=== PATIENT | female | born 1980 | race Caucasian/White ===

== ENCOUNTER 2022-04-23 12:49 | Emergency (ER) | payer OTHER, SELFPAY ==
[2022-04-23 13:04] VITALS: BP 128/83; PULSE 89; RESP 14; TEMP 36.7; O2SAT 100
[2022-04-23 13:18] VITALS: BP 128/83; PULSE 89; RESP 14; TEMP 36.7; O2SAT 100
--- NOTE | 2022-04-23 13:29 | ED.URI ---
HPI - URI/Sore Throat General Chief Complaint: Upper Respiratory Infection Stated Complaint: cough and congestion Time Seen by Provider: 04/23/22 13:29 Source: patient Mode of arrival: ambulatory Limitations: no limitations History of Present Illness HPI Narrative: 41-year-old female presents with complaint of nasal congestion, cough, fatigue for 1 week. Not taking any [id number] medications to treat her symptoms. States that she prefers not to over medicate when she does not need the medications. Afebrile. States that the cough does not seem to be getting better. Woke up this morning and chest congestion is worse. States she is coughing up green sputum. All systems reviewed and negative except as noted above. Related Data Allergies Allergy/AdvReac Type Severity Reaction Status Date / Time Penicillins Allergy Mild Hives / Verified 04/23/22 13:23 Red Face Review of Systems Review of Systems: CONSTITUTIONAL: Denies fever, chills, or sweats. Reports fatigue. EYES: Denies visual changes, redness, or discharge. ENT: Reports rhinorrhea, congestion, sore throat. Denies otalgia. CARDIOVASCULAR: Denies chest pain, palpitations, or edema. RESPIRATORY: Reports cough. Denies dyspnea. GASTROINTESTINAL: Denies abdominal pain, nausea, vomiting, or diarrhea. GENITOURINARY: Denies dysuria or hematuria. SKIN: Denies rash or itching. MUSCULOSKELETAL: Denies back pain, joint pain, or myalgia. NEUROLOGIC: Denies headache, numbness, or weakness. PSYCHIATRIC: Denies anxiety or depression. All other systems reviewed are negative, except as documented in HPI. PMFSH Comments At time of signature, agree with nursing past medical, surgical, social and family history. There is no relevant family history pertinent to the presenting complaint. Exam Narrative: GENERAL: This is a well-nourished, well-developed patient, in no apparent distress. HEAD: normocephalic, atraumatic. EYES: PERRL. Sclera clear/white. Vision is grossly intact. EARS: External ears normal, auditory canals clear and without drainage, TMs normal without perforation. Hearing grossly intact. NOSE: External nose normal with clear nasal drainage. THROAT: Mucous membranes moist, posterior pharynx clear. NECK: Neck supple, non-tender without lymphadenopathy, masses or thyromegaly. CARDIOVASCULAR: Regular rate and rhythm without murmurs, gallops, or rubs. RESPIRATORY: Decreased lung sounds to lower lung quarles. No wheezes, rales, or rhonchi. SKIN: warm, Dry, intact with no suspicious lesions or rash, good texture and turgor. NEURO: awake, alert, and oriented to person, place and time. There were no obvious focal neurologic abnormalities. EXTREMITIES: No joint tenderness, effusion, or edema noted. Course Course Level of Care: Express Care Visit Vital Signs Vital signs: Vital Signs Temperature 36.7 C 04/23/22 13:04 Pulse Rate 89 04/23/22 13:04 Respiratory Rate 14 04/23/22 13:04 Blood Pressure 128/83 04/23/22 13:04 Pulse Oximetry 100 04/23/22 13:04 Oxygen Delivery Room Air 04/23/22 13:04 Temperature 36.7 C 04/23/22 13:18 Pulse Rate 89 04/23/22 13:18 Respiratory Rate 14 04/23/22 13:18 Blood Pressure 128/83 04/23/22 13:18 Pulse Oximetry 100 04/23/22 13:18 Oxygen Delivery Room Air 04/23/22 13:18 Reviewed MDM - URI/Sore Throat MDM Narrative Medical decision making narrative: Patient is aware of diagnosis, understands and agrees to treatment plan. Anticipatory guidance given. Patient agrees to follow-up as directed and is aware of reasons to seek care at the emergency department. Portions of this record may have been created with voice recognition software Differential Diagnosis Differential diagnosis: Likely upper respiratory infection, sinusitis, viral infection, bronchitis and influenza Discharge Plan Discharge Clinical Impression: Upper respiratory infection Patient Disposition: Home, Self-Care Condition:
== END 2022-04-23 13:43 | disposition home or self-care (01) ==
PROVIDERS: Emergency Provider Nurse Practitioner Family; PCP Internal Medicine
DX: J06.9 Acute upper respiratory infection, unspecified (principal)
CPT/HCPCS: 99213; G0463

== ENCOUNTER 2022-12-04 08:00 | Emergency (ER) | payer OTHER, SELFPAY ==
[2022-12-04 08:00] VITALS: BP 138/90; PULSE 100; RESP 16; TEMP 37; O2SAT 97
[2022-12-04 08:25] VITALS: BP 138/90; PULSE 100; RESP 16; TEMP 37; O2SAT 97
--- NOTE | 2022-12-04 08:42 | ED.EYEPROB ---
HPI - Eye Problem General Chief complaint: Eye Problems Stated complaint: right eyelid swelling Source: patient and family Mode of arrival: ambulatory Limitations: no limitations History of Present Illness HPI Narrative: 42-year-old white female was outside yesterday came inside and notice by her daughter that her right eyelid was a little swollen she felt a little heavy in the eye lid. Denies any problems seeing yesterday or today. Other than that her eyelids swollen shot. She woke up with some discharge in her eye. To the eye just feels heavy not really pain. Does not remember having anything blowing her face or her eye yesterday are had any stings or insect or any event that might have caused this. Denies any problems walking talking seeing or hearing cough shortness of breath sore throat runny nose problems voiding or stooling eating or drinking nausea vomiting dizziness or lightheadedness rash or itching. Denies any other swelling. Related Data Allergies Allergy/AdvReac Type Severity Reaction Status Date / Time Penicillins Allergy Mild Hives / Verified 04/23/22 13:23 Red Face Review of Systems Review of Systems: All systems reviewed & are unremarkable except as noted in HPI and below Exam Const: General: healthy appearing Nutritional Appearance: well nourished Orientation/consciousness: patient oriented x3 Limitations: no limitations HENMT: Ears: external ears normal Face/Nose/Sinus: Normal external nose present Mouth: Yes Normal oral and palatal mucosa present Teeth and gingiva: dentition normal Throat: posterior oropharynx normal Eyes: Conjunctivae: conjunctival abnormality ( CONJUNCTIVA INJECTED ON THE RIGHT LEFT EYE WAS NORMAL.) Pupils: Equal, round and reactive pupils present EOM: EOMs intact bilaterally Direct Ophthalmoscopy: no photophobia Other: Right eyelid swollen to the point were her eyes swollen shut. RIGHT EYELID SWELLING DECREASED DURING THE EXAM. Eyelid was everted there was no foreign body seen fluorescein exam showed no uptake of fluorescein of the cornea. Pupils are equal round react to light extraocular movements are intact. Neck: Neck: normal visual inspection, no lymphadenopathy and no meningeal signs Course Vital Signs Vital signs: Vital Signs Temperature 37.0 C 12/04/22 08:00 Pulse Rate 100 12/04/22 08:00 Respiratory Rate 16 12/04/22 08:00 Blood Pressure 138/90 12/04/22 08:00 Pulse Oximetry 97 12/04/22 08:00 Oxygen Delivery Room Air 12/04/22 08:00 Temperature 37.0 C 12/04/22 08:25 Pulse Rate 100 12/04/22 08:25 Respiratory Rate 16 12/04/22 08:25 Blood Pressure 138/90 12/04/22 08:25 Pulse Oximetry 97 12/04/22 08:25 Oxygen Delivery Room Air 12/04/22 08:25 MDM - Eye Problem MDM Narrative Medical decision making narrative: Independent Historian: Differential Dx includes but not limited to: CONJUNCTIVITIS PERIORBITAL CELLULITIS CORNEAL ABRASION Medications were Reviewed: YES Independently Interpreted by me: External Source Review: Shared decision Making: Evaluation was discussed with patient her spouse. Re-treat her with Polytrim and cephalexin and she would follow up with her primary care provider this week. Social Situation Impacting Patients Care: Discussed with Dr. CHUN DIAGNOSIS: CONJUNCTIVITIS DISPOSITION: DISCHARGE HOME CONDITION AT DISCHARGE: STABLE Discharge Plan Discharge Clinical Impression: Bacterial conjunctivitis Patient Disposition: Home, Self-Care Condition: Stable Instructions: Antibiotic Form Additional Instructions: ice packs for 20 minutes as needed to decrease swelling. Polytrim 1 drop both eyes 4 times a day for 7 days. Cephalexin 500 mg twice a day for 7 days. Follow-up with your primary care provider this week return if you get worse or develops any new symptoms. Prescriptions: New polymyxin B sulf-trimethoprim [Polytrim] 10,000 unit- 1 mg/mL drops
[2022-12-04] MEDS: TETRACAINE HCL 0.5% OPHTH SOLN 4 ML BTL 1 DROP EACH EYE (08:45)
[2022-12-04] MEDS: FLUORESCEIN SOD 1 MG/STRIP EACH EYE (08:45)
[2022-12-04] MEDS: DACRIOSE EYE IRRIGATION 118 ML BOTTLE RIGHT EYE (08:45)
[2022-12-04] MEDS: CEPHALEXIN 500 MG CAPSULE PO (09:13)
[2022-12-04 09:19] VITALS: PULSE 100; RESP 20; TEMP 37; O2SAT 18
[2022-12-04 09:29] VITALS: BP 130/91; PULSE 75; RESP 15; O2SAT 98
== END 2022-12-04 09:41 | disposition home or self-care (01) ==
PROVIDERS: Emergency Provider Emergency Medicine; PCP Internal Medicine
DX: H10.89 Other conjunctivitis (principal)
CPT/HCPCS: 99283; A9270

== ENCOUNTER 2024-02-04 03:37 | Emergency (ER) | payer OTHER, SELFPAY ==
[2024-02-04 03:38] VITALS: BP 153/99; PULSE 103; RESP 18; TEMP 36.2; O2SAT 97
--- NOTE | 2024-02-04 03:42 | ED.DENTAL ---
HPI - Dental/Oral General Chief complaint: Dental/Oral Stated complaint: dental pain Time Seen by Provider: 02/04/24 03:42 Source: patient Mode of arrival: ambulatory Limitations: no limitations History of Present Illness HPI Narrative: 43-year-old female with a history of migraine, dental caries presents to the ED with 2 day history of -- right lower dental pain with jaw swelling. No fever or chills. Patient has extensive dental caries. MD Complaint: tooth pain Location: Tooth # (30) Onset (ago): day(s) ( One day) Duration: constant Severity: severe Relieving factors: nothing Exacerbating factors: nothing Context: history of dental caries Treatment prior to arrival: none Related Data Allergies Allergy/AdvReac Type Severity Reaction Status Date / Time Penicillins Allergy Mild Hives / Verified 04/23/22 13:23 Red Face Review of Systems Review of Systems: All systems reviewed & are unremarkable except as noted in HPI and below Constitutional: Constitutional: Reports as per HPI and Reports no additional constitutional complaints Eyes: Eyes: Reports as per HPI and Reports no additional eye complaints ENT: Reports system reviewed and no additional complaints, except as documented and Reports as per HPI Comments: right lower dental pain Cardiovascular: Cardiovascular: Reports as per HPI and Reports no additional cardiovascular complaints Respiratory: Respiratory: Reports as per HPI and Reports no additional respiratory complaints Gastrointestinal: Gastrointestinal: Reports as per HPI and Reports no additional gastrointestinal complaints Genitourinary: Genitourinary: Reports no additional female genitourinary complaints Musculoskeletal: Musculoskeletal: Reports no additional musculoskeletal complaints and Reports as per HPI Integumentary/Breasts: Skin/Breast: Reports system reviewed and no additional complaints, except as docu and Reports as per HPI Neurologic: Reports system reviewed and no additional complaints, except as documented and Reports as per HPI Psychiatric: Psychiatric: Reports no additional psychiatric complaints and Reports as per HPI Endocrine: Endocrine: Reports no additional endocrine complaints and Reports as per HPI Hematologic/Lymphatic: Hematologic/Lymphatic: Reports no additional hematologic/lymphatic complaints and Reports as per HPI Allergic/Immunologic: Allergic/Immunologic: Reports no additional allergic/immunologic complaints and Reports as per HPI PMFSH Past Medical History Medical History (Updated 02/04/24 @ 04:00 by Conrado Vogel MD) Dental caries Migraine Exam Narrative: blood pressure 153/99 with a heart rate of 103. Const: General: ill appearing Nutritional Appearance: well nourished Orientation/consciousness: patient oriented x3 Limitations: no limitations HENMT: Head: normal to inspection Ears: external ears normal Face/Nose/Sinus: Normal external nose present Face and sinus: normal facial exam Mouth: Yes Normal oral and palatal mucosa present Teeth and gingiva: dentition normal ( Extensive dental caries. Number 30 is carious with surrounding gingiviti) and abnormal tooth and associated gingiva ( multiple carious to involving molars in all 4 quadrants) Throat: posterior oropharynx normal Eyes: Conjunctivae: conjunctivae normal Pupils: Equal, round and reactive pupils present EOM: EOMs intact bilaterally Direct Ophthalmoscopy: no photophobia Neck: Neck: normal visual inspection, no lymphadenopathy and no meningeal signs Chest: Chest palpation & inspection: normal inspection of the chest Resp: Effort & Inspection: normal respiratory effort Auscultation: clear to auscultation bilaterally Cardio: Rate: regular rate Rhythm: regular rhythm GI: Auscultation: normal bowel sounds : General: Yes no CVA tenderness Back/Spine/Pelvis: Back: no CVA tenderness Skin: General skin exam: normal color Rashes: no rashes Wounds: no
[2024-02-04] MEDS: CLINDAMYCIN HCL 150 MG CAP 300 MG PO (04:02)
[2024-02-04] MEDS: HYDROcodone/acetaminophen (*CRX) 10-325 MG TABLET 1 TAB PO (04:02)
== END 2024-02-04 04:24 | disposition home or self-care (01) ==
PROVIDERS: Emergency Provider Internal Medicine Critical Care Medicine; PCP Internal Medicine
DX: K02.9 Dental caries, unspecified (principal)
CPT/HCPCS: 99283; A9270